=== PATIENT | female | born 1975 | race Caucasian/White ===

== ENCOUNTER 2016-08-18 09:26 | Emergency (ER) | payer OTHER ==
[2016-08-18 10:06] VITALS: BP 149/86
--- NOTE | 2016-08-18 10:50 | UC ---
Skin Complaint HPI - HPI Summary HPI Summary: The patient comes in today for: 1. Sunburn: Onset: 2 days ago. Palliative/provocative: Touch makes Quality: REd, burning, tender. Region: FAce, hands, feet, upper chest Severity: 5/10 Time: Constant. Associated symptoms: Event: She was out in the sun this past Thursday (2 days ago) and using sunblock #50. She was in the sun for 6 hours. She was putting on sunblock all that time. She does get burned very easily. Previous treatment: Aloe. Nocturnal: None. She is on multiple medications which are associated with photosensitivity: Lasix, Meloxicam, Ramipril, Cipro, Mirtazipine. * - History of Current Complaint Chief Complaint: UCSkin Time Seen by Provider: 08/18/16 10:41 Stated Complaint: FACIAL SKIN COMPLAINT Hx Obtained From: Patient Hx Last Menstrual Period: 07/08/16 ?: No - Allergy/Home Medications Allergies/Adverse Reactions: Allergies Allergy/AdvReac Type Severity Reaction Status Date / Time Cephalexin [From Keflex] Allergy Palpitation Verified 05/09/14 12:21 s Clarithromycin Allergy Palpitation Verified 05/09/14 12:21 s Medroxyprogesterone Allergy Palpitation Verified 08/18/16 10:07 [From Provera] s Morphine AdvReac Numbness Verified 08/18/16 10:07 Home Medications: Home Medications Ciprofloxacin TAB* [Cipro 500 MG TAB*] 500 mg PO BID 08/18/16 [History Confirmed 08/18/16] predniSONE TAB* [Deltasone TAB*] 1 mg PO DAILY 08/18/16 [History Confirmed 08/18] Review of Systems Constitutional: Negative Skin: Rash Eyes: Negative ENT: Negative Respiratory: Negative Cardiovascular: Negative Gastrointestinal: Negative Genitourinary: Negative All Other Systems Reviewed And Are Negative: Yes PMH/Surg Hx/FS Hx/Imm Hx Previously Healthy: No - Allergies, Rheumatoid arthritis. Endocrine History Of: Denies: Diabetes, Thyroid Disease, Hyperthyroidism, Hypothyroidism, Dyslipidemia Cardiovascular History Of: Reports: Hypertension Denies: Cardiac Disorders, Pacemaker/ICD, Myocardial Infarction, Congestive Heart Failure, Atrial Fibrillation, Deep Vein Thrombosis, Bleeding Disorders Respiratory History Of: Reports: Asthma Denies: COPD, Bronchitis, Pneumonia, Pulmonary Embolism GI/ History Of: Reports: Gastroesophageal Reflux Denies: Ulcer, Gastrointestinal Bleed, Gall Bladder Disease, Kidney Stones, Diverticulitis, Renal Disease, Urosepsis Neurological History Of: Denies: TIA, CVA, Dementia, Seizures, Migraine Psychological History Of: Reports: Depression Denies: Anxiety, Bipolar Disorder, Schizophrenia, Post Traumatic Stress Disorder Cancer History Of: Denies: Lung Cancer, Colorectal Cancer, Breast Cancer, Prostate Cancer, Cervical Cancer Other History Of: Negative For: HIV, Hepatitis B, Hepatitis C, Anticoagulant Therapy - Surgical History Surgical History: Yes Surgery Procedure, Year, and Place: C-SECT, gallbladder, vocal chord, DNC 06/27 - Family History Known Family History: Positive: Cardiac Disease, Hypertension - Social History Occupation: Employed Full-time Alcohol Use: None Substance Use Type: None Smoking Status (MU): Never Smoked Tobacco Physical Exam Triage Information Reviewed: Yes Appearance: Well-Appearing, No Pain Distress, Well-Nourished Vital Signs: Initial Vital Signs Temp 99.1 F 08/18/16 09:57 Pulse 97 08/18/16 09:57 Resp 16 08/18/16 09:57 BP 149/86 08/18/16 09:57 Pulse Ox 99 08/18/16 09:57 Vital Signs Reviewed: Yes Eyes: Positive: Conjunctiva Clear. Negative: Discharge ENT: Positive: Hearing grossly normal. Negative: Pharyngeal erythema, Nasal congestion, Nasal drainage, TM bulging, TM dull, TM red, Tonsillar swelling, Tonsillar exudate Dental: Negative: Gross Decay/Caries @, Dental Fracture @ Neck: Positive: Supple, Nontender, No Lymphadenopathy. Negative: Nuchal Rigidity Respiratory: Positive: Chest non-tender, Lungs clear, No respiratory distress, No accessory muscle use. Negative: Rhonchi, Wheezing Cardiovascular: Positive: RRR, No Murmur Abdomen Description: Positive: Nontender, No Organomegaly, Soft. Negative: Distended, Guarding Musculoskeletal: Positive: Strength Intact, ROM Intact Neurological: Positive: Alert, Muscle Tone Normal Psychological: Positive: Age Appropriate Behavior, Consolable Skin: Positive: rashes - She has a red rash with some fine, small blisters beginning to form on the chest and the forehead. The pattern is consistent with a more severe sunburn from exposure of sun positioned shining towards her face and on her left. In signs of infection. Course/Dx - Course Course Of Treatment: Patient was told of her treatment options. She wants to try a steroid ointment. - Differential Diagnoses - Skin Complaint Differential Diagnoses: Cellulitis, Eczema - Diagnoses Provider Diagnoses: Sunburn. High blood pressure Discharge - Discharge Plan Condition: Stable Disposition: HOME Patient Education Materials: Sunburn (ED), Hypertension (ED) Referrals: Philip Swanson MD [Primary Care Provider] - 1 Week (Please see your primary care provider or us in about a week to see how well you are doing. If you get worse, please be seen sooner. Your blood pressure may be re-evaluated at that time.)
== END 2016-08-18 11:18 | disposition home or self-care (01) ==
LOC: UCCORT 09:26
DX: L55.9 Sunburn, unspecified (principal); R03.0 Elevated blood-pressure reading, without diagnosis of hypertension; I10 Essential (primary) hypertension; J45.909 Unspecified asthma, uncomplicated; K21.9 Gastro-esophageal reflux disease without esophagitis; F32.9 Major depressive disorder, single episode, unspecified; Z88.1 Allergy status to other antibiotic agents; Z88.5 Allergy status to narcotic agent
CPT/HCPCS: 99212; G0463

== ENCOUNTER 2017-03-22 15:24 | Emergency (ER) | payer OTHER ==
[2017-03-22 16:53] VITALS: BP 140/82
--- NOTE | 2017-03-22 17:01 | UC ---
Elbow Pain - HPI Summary HPI Summary: Slipped on deck and fell hitting right arm. Fell backwards landing on the elbow and wrist. Worsening pain today. Feeling some swelling on the ulnar side of the hand and some numbness on the pinky - History of Current Complaint Chief Complaint: UCUpperExtremity Stated Complaint: RT ELBOW,WRIST Hx Obtained From: Patient Hx Last Menstrual Period: 07/08/16 ?: No Onset/Duration: Days - 1, Traumatic, Worse Since - today Severity Initially: Moderate Severity Currently: Moderate Location Of Pain: Is Discrete @ - Ulnar side of the elbow and hand. Character: Dull, Aching Aggravating Factor(s): Movement, Pulling Alleviating Factor(s): Rest Associated Signs And Symptoms: Positive: Swelling, Numbness/Tingling - over the pinky finger. - Allergies/Home Medications Allergies/Adverse Reactions: Allergies Allergy/AdvReac Type Severity Reaction Status Date / Time Cephalexin [From Keflex] Allergy Palpitation Verified 03/22/17 16:46 s Clarithromycin Allergy Palpitation Verified 03/22/17 16:46 s Medroxyprogesterone Allergy Palpitation Verified 03/22/17 16:46 [From Provera] s Morphine AdvReac Numbness Verified 03/22/17 16:46 Home Medications: Home Medications Budesonide/Formote 160/4.5(NF) [Symbicort 160/4.5 (NF)] 2 puff BID 03/22/17 [ History Confirmed 03/22/17] Omeprazole CAP* [Prilosec CAP* 20 MG] 40 mg DAILY 03/22/17 [History Confirmed ] Tiotropium CAP.INH* [Spiriva CAP.INH*] 1 inh DAILY 03/22/17 [History Confirmed 03/22/17] PMH/Surg Hx/FS Hx/Imm Hx Cardiovascular History: Hypertension Respiratory History: Asthma Other History Of: Negative For: HIV, Hepatitis B, Hepatitis C, Anticoagulant Therapy - Surgical History Surgical History: Yes Surgery Procedure, Year, and Place: C-SECT, gallbladder, vocal chord, DNC . Hysterectomy - Family History Known Family History: Positive: Cardiac Disease, Hypertension - Social History Occupation: Employed Full-time Lives: With Family Alcohol Use: None Substance Use Type: None Smoking Status (MU): Never Smoked Tobacco Have You Smoked in the Last Year: No - Immunization History Most Recent Influenza Vaccination: 2017 Review of Systems Respiratory: Cough Musculoskeletal: Arthralgia - right forearm and hand Is Patient Immunocompromised?: No All Other Systems Reviewed And Are Negative: Yes Physical Exam Triage Information Reviewed: Yes Appearance: Well-Appearing, No Pain Distress, Well-Nourished Vital Signs: Initial Vital Signs Temp 97.6 F 03/22/17 16:49 Pulse 75 03/22/17 16:49 Resp 16 03/22/17 16:49 BP 140/82 03/22/17 16:49 Pulse Ox 99 03/22/17 16:49 Vital Signs Reviewed: Yes Eyes: Positive: Conjunctiva Clear ENT: Positive: Pharynx normal, Nasal congestion, TMs normal Neck exam: Normal Respiratory: Positive: Wheezing - expiratory wheeze with forced expiration Cardiovascular Exam: Normal Musculoskeletal: Positive: 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 Neurological: Positive: Other: - decreased sensation to pinprick on the right ulnar nerve. Psychological Exam: Normal Skin Exam: Normal Diagnostics - Radiology No standard instances Xray Interpretation: No Acute Changes Radiology Interpretation Completed By: ED Physician Elbow Pain Course/Dx - Differential Dx/Diagnosis Differential Diagnosis/HQI/PQRI: Contusion, Fracture (Closed), Sprain, Strain Provider Diagnoses: Contusion right elbow and wrist. Right ulnar nerve contusion. Discharge - Discharge Plan Condition: Stable Disposition: HOME Patient Education Materials: Contusion in Adults (ED) Referrals: Philip Swanson MD [Primary Care Provider] - Milad Duque MD [Medical Doctor] - 2 Days (Recheck on bruised nerve.) Additional Instructions: Ulnar nerve bruise. This should gradually resolve. Consider Montelukast for allergies and asthma to help with the cough
--- NOTE | 2017-03-22 17:36 | RAD ---
INDICATION: Left elbow pain COMPARISON: None TECHNIQUE: AP and lateral views were obtained. FINDINGS: The bony structures, joint spaces, and soft tissues are normal for age. IMPRESSION: NEGATIVE EXAMINATION.
--- NOTE | 2017-03-22 17:37 | RAD ---
INDICATION: Right wrist pain COMPARISON: None TECHNIQUE: AP, lateral, and oblique views were obtained. FINDINGS: There is no acute bony change. There is mild metacarpal osteoarthritis. The carpals articulate normally. The soft tissues are normal. IMPRESSION: NO ACUTE BONY FINDINGS.
== END 2017-03-22 17:56 | disposition home or self-care (01) ==
LOC: UCCORT 15:24
DX: S50.01XA Contusion of right elbow, initial encounter (principal); S60.211A Contusion of right wrist, initial encounter; S54.01XA Injury of ulnar nerve at forearm level, right arm, initial encounter; W01.0XXA Fall on same level from slipping, tripping and stumbling without subsequent striking against object, initial encounter; Y93.9 Activity, unspecified; Y92.008 Other place in unspecified non-institutional (private) residence as the place of occurrence of the external cause; I10 Essential (primary) hypertension; J45.909 Unspecified asthma, uncomplicated; Z90.49 Acquired absence of other specified parts of digestive tract; Z90.710 Acquired absence of both cervix and uterus; Z88.1 Allergy status to other antibiotic agents; Z88.5 Allergy status to narcotic agent; Z88.8 Allergy status to other drugs, medicaments and biological substances
CPT/HCPCS: 99211; G0463

== ENCOUNTER 2017-10-25 16:40 | Emergency (ER) | payer OTHER ==
[2017-10-25 16:57] VITALS: BP 143/88
--- NOTE | 2017-10-25 17:23 | UC ---
Lower Extremity/Ankle HPI - HPI Summary HPI Summary: Pt c/o right foot pain. lateral aspect after tripping in pothole 3 days ago. - History of Current Complaint Chief Complaint: UCTrauma Stated Complaint: R FOOT PAIN FROM FALL Time Seen by Provider: 10/25/17 16:57 Hx Obtained From: Patient Hx Last Menstrual Period: 07/08/16 ?: No Onset/Duration: Sudden Onset, Lasting Days, Still Present Severity Initially: Moderate Severity Currently: Moderate Pain Intensity: 6 Aggravating Factor(s): Standing, Ambulation Alleviating Factor(s): Rest, Elevation Able to Bear Weight: Yes - Risk Factors Gout Risk Factors: Obesity Septic Arthritis Risk Factor: Negative - Allergies/Home Medications Allergies/Adverse Reactions: Allergies Allergy/AdvReac Type Severity Reaction Status Date / Time cephalexin [From Keflex] Allergy Intermediate Palpitation Verified 10/25/17 16: 59 s clarithromycin [From Biaxin] Allergy Intermediate Palpitation Verified 10/25/17 16:59 s morphine Allergy Intermediate Palpitation Verified 10/25/17 16:59 s PMH/Surg Hx/FS Hx/Imm Hx Previously Healthy: Yes Other History Of: Negative For: HIV, Hepatitis B, Hepatitis C, Anticoagulant Therapy - Surgical History Surgical History: Yes Surgery Procedure, Year, and Place: C-SECT, gallbladder, vocal chord, DNC . Hysterectomy - Family History Known Family History: Positive: Cardiac Disease, Hypertension - Social History Occupation: Employed Full-time Lives: With Family Alcohol Use: None Substance Use Type: None Smoking Status (MU): Never Smoked Tobacco Have You Smoked in the Last Year: No - Immunization History Most Recent Influenza Vaccination: 2017 Review of Systems Constitutional: Negative Skin: Bruising - right foot Eyes: Negative ENT: Negative Respiratory: Negative Cardiovascular: Negative Gastrointestinal: Negative Genitourinary: Negative Motor: Decreased ROM - right foot Neurovascular: Negative Musculoskeletal: Arthralgia, Myalgia Neurological: Negative Psychological: Negative Is Patient Immunocompromised?: No All Other Systems Reviewed And Are Negative: Yes Physical Exam Triage Information Reviewed: Yes Appearance: Well-Appearing Vital Signs: Initial Vital Signs Temp 99.2 F 10/25/17 16:52 Pulse 93 10/25/17 16:52 Resp 18 10/25/17 16:52 BP 143/88 10/25/17 16:52 Pulse Ox 98 10/25/17 16:52 Vital Signs Reviewed: Yes Eye Exam: Normal ENT Exam: Normal Dental Exam: Normal Neck exam: Normal Respiratory: Positive: No respiratory distress Musculoskeletal Exam: Other Musculoskeletal: Positive: ROM Limited @ - right foot, Edema @ - right foot lateral aspect, Neurological Exam: Normal Psychological Exam: Normal Skin Exam: Other - bruising right foot, lateral aspect Diagnostics - Radiology No standard instances Radiology Interpretation Completed By: Radiologist - IMPRESSION: NONDISPLACED FRACTURE OF THE BASE OF THE FIFTH METATARSAL. Lower Extremity Course/Dx - Differential Dx/Diagnosis Differential Diagnosis/HQI/PQRI: Contusion, Sprain, Strain Provider Diagnoses: right foot fracture Discharge - Sign-Out/Discharge Documenting (check all that apply): Discharge/Admit/Transfer - Discharge Plan Condition: Stable Disposition: HOME Patient Education Materials: Foot Fracture in Adults (ED) Forms: *Work Release Referrals: Milad Duque MD [Medical Doctor] - As Soon As Possible Raven Galvez MD [Primary Care Provider] - If Needed - Billing Disposition and Condition Condition: STABLE Disposition: Home
--- NOTE | 2017-10-25 17:33 | RAD ---
HISTORY: fall/trip in pothole 2 days ago COMPARISONS: None VIEWS: 3, Frontal, lateral, and oblique views of the right foot FINDINGS: BONE DENSITY: Normal. BONES: There is a nondisplaced fracture of the base of the fifth metatarsal with articular extension. JOINTS: There is no arthropathy. ALIGNMENT: There is no dislocation. SOFT TISSUES: Unremarkable. OTHER FINDINGS: None. IMPRESSION: NONDISPLACED FRACTURE OF THE BASE OF THE FIFTH METATARSAL.
== END 2017-10-25 18:08 | disposition home or self-care (01) ==
LOC: UCCORT 16:40
DX: S92.354A Nondisplaced fracture of fifth metatarsal bone, right foot, initial encounter for closed fracture (principal); W17.2XXA Fall into hole, initial encounter; Y93.9 Activity, unspecified; Y92.9 Unspecified place or not applicable; Z88.1 Allergy status to other antibiotic agents; Z88.5 Allergy status to narcotic agent
CPT/HCPCS: 99213; G0463

== ENCOUNTER 2017-12-23 15:33 | Emergency (ER) | payer OTHER ==
--- OUTSIDE RECORDS SUMMARY | 2017-12-23 15:41 | XMS REPORT ---
:1975 External Reference #:[id number] Author Organization [facility] Address [address] [place] [address] Phone [phone] Care Team Providers Name Role Phone Raven Galvez MD Care Team Information Erp Project Manager Unavailable Raven Galvez MD Primary Care Physician Unavailable Payers Type Date Identification Numbers Payment Provider Subscriber Commercial Policy Number: [id number] [employer] Jaylin Mcgraw PayID: [id number] [address] [place] [address] Commercial Policy Number: [id number] [employer] Jaylin Mcgraw PayID: [id number] [address] [facility] [place] [address] Commercial Expires: 2017 Policy Number: [place] [employer] Jaylin Mcgraw [id number] PayID: [id number] [address] [place] [address] Problems Date Description Provider Status Onset: 04/11/2013 Gallbladder calculus with acute Fly Trujillo M.D. 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 Cigarette Use Never Smoked Cigarettes ETOH Use Denies alcohol use Smoking Patient has never smoked Recreational Drug Use Denies Drug Use Daily Caffeine Consumes on average 1 cup of regular coffee per day Daily Caffeine Current Caffeine User Allergies, Adverse Reactions, Alerts Date Description Reaction Status Severity Comments 04/11/2013 Keflex active 02/09/2017 Clarithromycin active 02/09/2017 Biaxin active 02/09/2017 Morphine active 02/09/2017 Provera active 02/09/2017 Steri-Strips active Medications Medication Date Status Form Strength Qnty SIG Indications Ordering Provider Ondansetron / Active Tablets 4mg 5tabs one po 30 Unknown Odt 0000 Dispers min before 1pm & 10 pm doses, and one q4h prn nausea Zyrtec Allergy / Active Tablets 10mg 30tab 1 by mouth Unknown 0000 s every day Ventolin HFA / Active Aerosol 108(90Bas prn Unknown 0000 e) mcg/Act Escitalopram / Active Tablets 20mg 30tab 1 by mouth Unknown Oxalate 0000 s every day Mirtazapine / Active Tablets 30mg 90tab 1 by mouth Unknown 0000 s every day Singulair / Active Tablets 10mg 90tab 1 by mouth Unknown 0000 s every day Montelukast / Active Tablets 10mg 1 by mouth Unknown Sodium 0000 every day Omeprazole / Active Capsules DR 40mg 1 by mouth Unknown 0000 every day Symbicort 00/00/ Active Aerosol 160-4.5mc 2 puff Unknown 0000 g/Act twice a day Spiriva / Active Aerosol 1.25mcg/A [address] inhalation once a day. pleas load and teach inhaler. Amlodipine / Active Tablets 2.5mg 90tab 1 by mouth Unknown Besylate 0000 s every day Fluticasone / Active Suspension 50mcg/Act 1 spray to Unknown Propionate 0000 each nare every day Elimite / Hx Cream 5% Unknown 0000 Montelukast // Hx Tablets 10mg Unknown Sodium 0000 Ramipril / Hx Capsules 10mg 90cap 1 po qd Unknown 0000 - s 2017 Vital Signs Date Vital Result Comment 12/10/2017 BP Systolic Sitting Left Arm 149 mmHg Pt will monitor and contact PCP if needed BP Diastolic Sitting Left Arm 100 mmHg Pt will monitor and contact PCP if needed Body Temperature 98.0 F Heart Rate 80 /min Respiratory Rate 17 /min Height 59 inches 4'11" Weight 195.00 lb BMI (Body Mass Index) 39.4 kg/m2 BSA (Body Surface Area) 1.82 m2 [place] body weight in kilograms 45 O2 % BldC Oximetry 97 % 2017 BP Systolic Sitting Left Arm 143 mmHg Pt say it been high BP Diastolic Sitting Left Arm 98 mmHg Pt say it been high Body Temperature 97.9 F Heart Rate 86 /min Respiratory Rate 17 /min Height 59 inches 4'11" Weight 192.00 lb BMI (Body Mass Index) 38.8 kg/m2 BSA (Body Surface Area) 1.81 m2 [place] body weight in kilograms 45 O2 % BldC Oximetry 100 % 11/10/2017 BP Systolic Sitting Left Arm 146 mmHg BP Diastolic Sitting Left Arm 92 mmHg Body Temperature 98.1 F Heart Rate 101 /min Respiratory Rate 19 /min Height 59 inches 4'11" Weight 199.00 lb BMI (Body Mass Index) 40.2 kg/m2 BSA (Body Surface Area) 1.84 m2 [place] body weight in kilograms 45 O2 % BldC Oximetry 96 % 10/26/2017 BP Systolic Sitting Left Arm 125 mmHg BP Diastolic Sitting Left Arm 87 mmHg Body Temperature 98.7 F Heart Rate 102 /min Respiratory Rate 17 /min Height 59 inches 4'11" [place] body weight in kilograms 45 O2 % BldC Oximetry 97 % 04/11/2013 BP Systolic Sitting Left Arm 116 mmHg BP Diastolic Sitting Left Arm 85 mmHg Heart Rate 97 /min Respiratory Rate 18 /min Height 59 inches 4'11" Weight 144.00 lb BMI (Body Mass Index) 29.1 kg/m2 BSA (Body Surface Area) 1.60 m2 Results Test Date Test Result H/L Range Note Xray 12/10/2017 RMP, Foot, RT, Ap, lat & oblique (3 <pending> view) CBC 04/22/2013 White Blood Count 8.4 K/uL 3.1-10.7 Red Blood Count 4.55 M/uL 3.90-5.40 Hemoglobin 13.3 gm/dL 11.6-15.8 Hematocrit 40.4 % 36.0-46.1 Mean Cell Volume 88.8 fl 80.9-99.0 Mean Corpuscular HGB 29.2 pg 25.9-32.7 Mean Corpuscular HGB Conc 32.9 g/dL 30.8-34.3 Platelet Count 288 K/uL 155-360 Red Cell Distri Width %CV 12.8 % 11.7-14.4 Mean Platelet Volume 10.4 fL 8.9-12.4 Protime 04/22/2013 Protime 13.2 seconds 12.0-14.4 Inr 1.0 0.9-1.1 1 Laboratory test finding 04/22/2013 Gallbladder See Note 2 Urine Screen 04/19/2013 Urine Color YELLOW Yellow Urine Clarity CLOUDY Clear Urine Glucose - Dipstick NEGATIVE mg/dL Negative Urine Bilirubin - Dipstick NEGATIVE Negative Urine Ketone NEGATIVE mg/dL Negative Urine Specific [place] 1.025 1.010-1.030 Urine Blood NEGATIVE Negative Urine PH 6.0 Low 6.5-7.5 Urine Protein - Dipstick NEGATIVE mg/dL Negative Urine Urobilinogen - Dipstick 0.2 E.U./dL 0.2-1.0 Urine Nitrite - Dipstick NEGATIVE Negative Urine Leuk Esterase NEGATIVE Negative Liver Function Tests 04/19/2013 Total Protein 6.7 g/dL 6.3-8.0 Albumin 4.0 g/dL 3.5-5.0 Globulin 2.7 g/dL 1.9-4.3 Alb/Glob 1.5 ratio Bilirubin,Total 0.4 mg/dL 0.2-1.2 Bilirubin,Direct < 0.1 mg/dL Low 0.1-0.4 Bilirubin,Indirect 0.3 mg/dL 0.0-0.9 Sgot/Ast 32 U/L 16-40 SGPT/Alt 84 U/L High 30-65 Alkaline Phosphatase 71 U/L 50-136 Basic Metabolic Panel 04/19/2013 Glucose 95 mg/dL 76-115 BUN 10 mg/dL 5-23 Creatinine 0.8 mg/dL 0.5-1.4 Glom Filtration Rate, Estimate >60 mL/min >60 If >60 mL/min >60 3 BUN/Creat 12.5 ratio Sodium 139 mmol/L 136-145 Potassium 3.9 mmol/L 3.5-5.1 Chloride 107 mmol/L 98-107 Carbon Dioxide 27 mEq/L 18-29 Anion Gap 9 mEq/L 8-16 Calcium 9.4 mg/dL 8.5-10.1 CBC 04/19/2013 White Blood Count 5.8 K/uL 3.1-10.7 Red Blood Count 4.85 M/uL 3.90-5.40 Hemoglobin 14.1 gm/dL 11.6-15.8 Hematocrit 43.1 % 36.0-46.1 Mean Cell Volume 88.9 fl 80.9-99.0 Mean Corpuscular HGB 29.1 pg 25.9-32.7 Mean Corpuscular HGB Conc 32.7 g/dL 30.8-34.3 Platelet Count 281 K/uL 155-360 Red Cell Distri Width %CV 12.8 % 11.7-14.4 Mean Platelet Volume 11.0 fL 8.9-12.4 1 THERAPEUTIC INR RANGE: 2.0 - 3.0 DVT, Pulmonary embolus, prophylaxis against venous thrombosis or systemic embolization in high risk patients. 2.5 - 3.5 Mechanical heart valves 2 OPERATION/PROCEDURE Lap. joselin. DIAGNOSIS: "GALLBLADDER": CHRONIC CHOLECYSTITIS, CHOLESTEROLOSIS AND CHOLELITHIASIS. NO EVIDENCE OF ACUTE INFLAMMATION, DYSPLASIA NOR NEOPLASIA APPRECIATED. MIKAELA/lisha GROSS The specimen is received in a single container additionally labeled "GALLBLADDER". This contains a grossly recognizable unopened gallbladder. This has a green shiny smooth surface and overall measures 6.6 x 3.0 x 2.6 cm. in overall dimensions. There is no visible wall defect. The wall has a uniform thickness of 0.1 cm. The mucosal surface is green, velvety smooth and unremarkable. No trabeculations noted. [place] reticular discoloration of cholesterolosis is noted. One stone is noted with a diameter up to 0.6 cm., it does not obstruct the neck. Bond Underwriter sections are submitted within a single cassette. /celiaf MICROSCOPIC Sections show gallbladder mucosa lined by columnar epithelium with focal synechia, and Rokitansky-Aschoff sinus formation. The submucosa has a mild infiltrate of lymphocytes and plasma cells. Foamy histiocytes are noted within the tips of papillae. The muscular wall is slightly fibrotic and hypertrophied. PRE OPERATIVE DIAGNOSIS Cholecystitis REVIEW CODE CODE: I RASHAAD Felix MD 04/26/13 1229 3 Note: Persistent reduction for 3 months or more in an eGFR <60 mL/min/1.73 m2 defines CKD. Patients with eGFR values >/=60 mL/min/1.73 m2 may also have CKD if evidence of persistent proteinuria is present. The original MDRD equation for estimated GFR is not valid for patients less than 18 years of age. Additional information may be found at www.kdoqi.org. Procedures Date CPT Code Description Status 12/10/2017 56981 Radiology, Foot, Complete-3 Views Completed 12/10/2017 89657 Radiology, Foot, Complete-3 Views Completed 2017 17276 Radiology, Foot, Complete-3 Views Completed 11/10/2017 77121 Radiology, Foot, Complete-3 Views Completed 10/26/2017 74120 FX Metatarsal-Closed W/O Completed 02/09/2017 74316 Eye Exam New Patient Comprehensive Completed 10/31/2013 96193 Echocardiogram Complete Completed 04/22/2013 56770 Laparoscopy; cholecystectomy Completed 04/22/2013 19675 Anesthesia, Upper Abdomen Surgery Not Otherwise Spec Completed Encounters Type Date Location Provider CPT E/M Dx Office Visit 10/26/2017 2:15p Orthopaedic Office JAX Narayan 67558 [id number] Office Visit 04/11/2013 2:00p Surgical Office Fly Trujillo M.D. [id number] 574.10 564.1 300.02 Plan of Care 12/10/2017 - MOISES [id number] Nondisp fx of 5th metatarsal bone, r ft, 7thDComments:Overall she is doing very well. She may return to regular shoe wear. She may return to work full duty. Activities as tolerated. Follow up here as needed.Follow up:prn
[2017-12-23 15:48] VITALS: BP 136/97
--- NOTE | 2017-12-23 16:16 | UC ---
Lower Extremity/Ankle HPI - HPI Summary HPI Summary: The patient is a 42-year-old female who twisted her right foot at work 3 days ago. She is able to walk but does so with a limp. Back in October she fractured the base of her right fifth metatarsal. Currently her pain is located at the base of her first metatarsal. This injury occurred at work. She injured her foot walking on uneven ground. - History of Current Complaint Chief Complaint: UCLowerExtremity Stated Complaint: WC - RIGHT FOOT INJURY Time Seen by Provider: 12/23/17 15:58 Hx Obtained From: Patient Hx Last Menstrual Period: 07/08/16 Onset/Duration: Sudden Onset Severity Initially: Moderate Severity Currently: Mild Pain Intensity: 1 Pain Scale Used: 0-10 Numeric Aggravating Factor(s): Standing Alleviating Factor(s): Rest Able to Bear Weight: Yes Related History: Occupational Injury Feet (Multiple View): 1 - tender here - Allergies/Home Medications Allergies/Adverse Reactions: Allergies Allergy/AdvReac Type Severity Reaction Status Date / Time cephalexin [From Keflex] Allergy Intermediate Palpitation Verified 12/23/17 15: 45 s clarithromycin [From Biaxin] Allergy Intermediate Palpitation Verified 12/23/17 15:45 s morphine Allergy Intermediate Palpitation Verified 12/23/17 15:45 s Steri Strips Allergy Rash Uncoded 12/23/17 15:45 Home Medications: Home Medications Acetaminophen [Tylenol Extra Strength] 1,000 mg PO ONCE 12/23/17 [History Confirmed 12/23/17] PMH/Surg Hx/FS Hx/Imm Hx Previously Healthy: Yes Other History Of: Negative For: HIV, Hepatitis B, Hepatitis C, Anticoagulant Therapy - Surgical History Surgical History: Yes Surgery Procedure, Year, and Place: C-SECT, gallbladder, vocal chord, [facility] . Hysterectomy, liver biopsy - Family History Known Family History: Positive: Cardiac Disease, Hypertension - Social History Alcohol Use: None Substance Use Type: None Smoking Status (MU): Never Smoked Tobacco Have You Smoked in the Last Year: No - Immunization History Most Recent Influenza Vaccination: 2016 Review of Systems Constitutional: Negative Skin: Negative Eyes: Negative ENT: Negative Respiratory: Negative Cardiovascular: Negative Gastrointestinal: Negative Genitourinary: Negative Motor: Negative Neurovascular: Negative Musculoskeletal: Arthralgia Neurological: Negative Psychological: Negative Is Patient Immunocompromised?: No All Other Systems Reviewed And Are Negative: Yes Physical Exam Triage Information Reviewed: Yes Appearance: Well-Appearing, No Pain Distress, Well-Nourished Vital Signs: Initial Vital Signs Temp 99.4 F 12/23/17 15:41 Pulse 83 12/23/17 15:41 Resp 16 12/23/17 15:41 BP 136/97 12/23/17 15:41 Pulse Ox 97 12/23/17 15:41 Vital Signs Reviewed: Yes Eye Exam: Normal ENT: Negative: Hearing grossly normal, Nasal congestion, Nasal drainage, Trismus , Muffled voice, Hoarse voice Neck: Positive: Supple, Nontender Respiratory: Positive: Lungs clear, Normal breath sounds, No respiratory distress Cardiovascular: Positive: RRR, No Murmur Musculoskeletal Exam: Normal Musculoskeletal: Positive: ROM Intact, No Edema, Other: - see image Neurological: Positive: Alert Psychological Exam: Normal Skin Exam: Normal Diagnostics - Radiology No standard instances Xray Interpretation: No Acute Changes Radiology Interpretation Completed By: Radiologist Lower Extremity Course/Dx - Course Course Of Treatment: declines post op shoe - Differential Dx/Diagnosis Provider Diagnoses: right foot sprain Discharge - Sign-Out/Discharge Documenting (check all that apply): Patient Departure - Discharge Plan Condition: Critical Disposition: HOME Patient Education Materials: Foot Sprain (ED) Referrals: Raven Galvez MD [Primary Care Provider] - Additional Instructions: ice twice daily advil or ice if needed for pain recheck in 1-2 weeks if not better - Billing Disposition and Condition Condition: CRITICAL Disposition: Home
--- NOTE | 2017-12-23 16:25 | RAD ---
INDICATION: Foot injury COMPARISON: None TECHNIQUE: AP, lateral, and oblique views were obtained. FINDINGS: There is no acute fracture. There is an old, healed, fifth metatarsal fracture. There is mild osteoarthritic change but the midfoot. The soft tissues are intact. IMPRESSION: NO ACUTE BONY FINDINGS.
== END 2017-12-23 16:41 | disposition home or self-care (01) ==
LOC: UCCORT 15:33
DX: S93.601A Unspecified sprain of right foot, initial encounter (principal); X50.1XXA Overexertion from prolonged static or awkward postures, initial encounter; Y93.01 Activity, walking, marching and hiking; Y92.9 Unspecified place or not applicable; Y99.0 Civilian activity done for income or pay; Z88.1 Allergy status to other antibiotic agents; Z88.5 Allergy status to narcotic agent
CPT/HCPCS: 99211; G0463

== ENCOUNTER 2018-02-21 12:21 | Emergency (ER) | payer OTHER ==
[2018-02-21 13:43] VITALS: BP 138/84
[2018-02-21] MEDS ORDERED: Ketorolac INJ* 30 MG/ML 1 ML VIAL IM ONE (13:56)
--- NOTE | 2018-02-21 14:14 | UC ---
Abdominal Pain Female HPI - HPI Summary HPI Summary: 42-year-old female presents with left lower back and flank pain that radiates into the groin. This has been going on and off for a few weeks but over the last 3 days has worsened significantly. Patient could not get comfortable last night and could not sleep. She denies any fevers or chills. She denies any trauma or injury that she can think of. 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 She denies any urinary incontinence or leg weakness. The pain does not radiate into the legs. She denies any urinary concerns. She has no concerns with diarrhea or constipation. She states the pain is 9 out of 10 and Tylenol and Motrin have not helped. She denies having any previous history of kidney stones. - History of Current Complaint Chief Complaint: UCBackPain Stated Complaint: LOWER BACK PAIN Time Seen by Provider: 02/21/18 13:47 Hx Obtained From: Patient Hx Last Menstrual Period: 07/08/16 Onset/Duration: Gradual Onset Timing: Constant Severity Initially: Mild Severity Currently: Severe Pain Intensity: 9 Radiates to: Back, Flank Character: Aching, Sharp Alleviating Factor(s): Nothing Allergies/Adverse Reactions: Allergies Allergy/AdvReac Type Severity Reaction Status Date / Time cephalexin [From Keflex] Allergy Intermediate Palpitation Verified 02/21/18 13: 43 s clarithromycin [From Biaxin] Allergy Intermediate Palpitation Verified 02/21/18 13:43 s lisinopril Allergy Intermediate GI upset, Verified 02/21/18 13:43 sweating, palpitations morphine Allergy Intermediate Palpitation Verified 02/21/18 13:43 s Steri Strips Allergy Rash Uncoded 02/21/18 13:43 PMH/Surg Hx/FS Hx/Imm Hx Previously Healthy: Yes Endocrine History: Dyslipidemia Cardiovascular History: Hypertension GI/ History: Gastroesophageal Reflux Psychological History: Anxiety, Depression Other History Of: Negative For: HIV, Hepatitis B, Hepatitis C, Anticoagulant Therapy - Surgical History Surgical History: Yes Surgery Procedure, Year, and Place: C-SECT, gallbladder, vocal chord, DNC . Hysterectomy, liver biopsy - Family History Known Family History: Positive: Cardiac Disease, Hypertension - Social History Occupation: Employed Full-time Alcohol Use: None Substance Use Type: None Smoking Status (MU): Never Smoked Tobacco Have You Smoked in the Last Year: No - Immunization History Most Recent Influenza Vaccination: 2017 Review of Systems Musculoskeletal: Arthralgia Is Patient Immunocompromised?: No All Other Systems Reviewed And Are Negative: Yes Physical Exam - Summary Physical Exam Summary: Patient cannot sit still and is constantly moving and she cannot find a comfortable position Triage Information Reviewed: Yes Appearance: Well-Appearing, Well-Nourished, Pain Distress - moderate Vital Signs: Initial Vital Signs Temp 98.5 F 02/21/18 13:38 Pulse 82 02/21/18 13:38 Resp 16 02/21/18 13:38 BP 138/84 02/21/18 13:38 Pulse Ox 100 02/21/18 13:38 Vital Signs Reviewed: Yes Eye Exam: Normal ENT Exam: Normal Neck exam: Normal Neck: Positive: 1 Respiratory Exam: Normal Cardiovascular Exam: Normal Abdominal Exam: Normal Musculoskeletal Exam: Normal Musculoskeletal: Positive: Strength Intact, ROM Intact, No Edema, Other: - Left lumbar paraspinal tenderness L1 and 2 as well as some mild flank left-sided discomfort to palpation. No spinous process tenderness no step-off. Strength 5 out of 5 lower extremities and sensation intact. DTRs normal. Neurological Exam: Normal Psychological Exam: Normal Skin Exam: Normal Abd Pain Female Course/Dx - Course Course Of Treatment: Patient with left lower back and flank discomfort that radiates into the groin. She cannot sit comfortably and is very fidgety. Concern for renal stone. Check a CT scan renal protocol at this time. Urinalysis is negative at this time. In the office patient did receive dose of Toradol for her pain. CT scan is not possible as the machine is broken we will advise patient to go to the emergency room at this time. She is agreeable to plan of note her pain did drop from a 9 down to a 7 with toradol. spoke with jose at ED in [place] and willing to accept pt - Differential Dx/Diagnosis Differential Diagnosis: Renal Colic Provider Diagnoses: Left flank / back pain Discharge - Sign-Out/Discharge Documenting (check all that apply): Patient Departure All imaging exams completed and their final reports reviewed: No Studies - Discharge Plan Condition: Good Disposition: HOME Patient Education Materials: Flank Pain (ED) Referrals: Raven Galvez MD [Primary Care Provider] - 3 Days Additional Instructions: As we discussed your advised to go directly to the emergency room for further evaluation as we are not equipped to properly evaluate your medical condition at this time. Feel better. - Billing Disposition and Condition Condition: GOOD Disposition: Home
== END 2018-02-21 14:24 | disposition home or self-care (01) ==
LOC: UCCORT 12:21
DX: Z88.1 Allergy status to other antibiotic agents (principal); Z88.5 Allergy status to narcotic agent; Z88.8 Allergy status to other drugs, medicaments and biological substances; I10 Essential (primary) hypertension; R10.9 Unspecified abdominal pain; M54.5 Low back pain
CPT/HCPCS: 81003; 96372; 99211; G0463; J1885

== ENCOUNTER 2018-03-28 12:29 | Emergency (ER) | payer OTHER ==
[2018-03-28 15:22] VITALS: BP 142/89
--- NOTE | 2018-03-28 15:56 | UC ---
Upper Extremity HPI - HPI Summary HPI Summary: Patient slipped on ice at work, anded on her forearm. pain, swelling and deformity of right wrist is noted. color and sensation in hand normal - History of Current Complaint Chief Complaint: UCUpperExtremity Stated Complaint: WC-RIGHT WRIST INJURY Time Seen by Provider: 03/28/18 15:21 Hx Obtained From: Patient Hx Last Menstrual Period: 07/08/16 Onset/Duration: Sudden Onset, Lasting Hours Severity Initially: Moderate Severity Currently: Moderate Pain Intensity: 7 Character: Throbbing, Spasmodic Aggravating Factor(s): Movement, Lifting, Flexion, Extension Associated Signs And Symptoms: Positive: Negative, Swelling - Allergies/Home Medications Allergies/Adverse Reactions: Allergies Allergy/AdvReac Type Severity Reaction Status Date / Time cephalexin [From Keflex] Allergy Intermediate Palpitation Verified 03/28/18 15: 22 s clarithromycin [From Biaxin] Allergy Intermediate Palpitation Verified 03/28/18 15:22 s lisinopril Allergy Intermediate GI upset, Verified 03/28/18 15:22 sweating, palpitations morphine Allergy Intermediate Palpitation Verified 03/28/18 15:22 s Steri Strips Allergy Rash Uncoded 03/28/18 15:22 PMH/Surg Hx/FS Hx/Imm Hx Previously Healthy: Yes Other History Of: Negative For: HIV, Hepatitis B, Hepatitis C, Anticoagulant Therapy - Surgical History Surgical History: Yes Surgery Procedure, Year, and Place: C-SECT, gallbladder, vocal chord, DNC . Hysterectomy, liver biopsy - Family History Known Family History: Positive: Cardiac Disease, Hypertension - Social History Alcohol Use: None Substance Use Type: None Smoking Status (MU): Never Smoked Tobacco Have You Smoked in the Last Year: No - Immunization History Most Recent Influenza Vaccination: 2016 Review of Systems All Other Systems Reviewed And Are Negative: Yes Constitutional: Positive: Negative Skin: Positive: Negative Eyes: Positive: Negative ENT: Positive: Negative Respiratory: Positive: Negative Cardiovascular: Positive: Negative Gastrointestinal: Positive: Negative Genitourinary: Positive: Negative Motor: Positive: Negative Neurovascular: Positive: Negative Musculoskeletal: Positive: Arthralgia, Decreased ROM, Edema, Myalgia Neurological: Positive: Negative Psychological: Positive: Negative Is Patient Immunocompromised?: No Physical Exam Triage Information Reviewed: Yes Appearance: Well-Appearing, Well-Nourished, Pain Distress Vital Signs: Initial Vital Signs Temp 98.5 F 03/28/18 15:17 Pulse 95 03/28/18 15:17 Resp 17 03/28/18 15:17 BP 142/89 03/28/18 15:17 Pulse Ox 98 03/28/18 15:17 Vital Signs Reviewed: Yes Eye Exam: Normal ENT Exam: Normal Dental Exam: Normal Neck exam: Normal Respiratory Exam: Normal Cardiovascular Exam: Normal Cardiovascular: Positive: RRR, No Murmur, Pulses Normal Abdominal Exam: Normal Abdomen Description: Positive: Nontender, No Organomegaly, Soft Musculoskeletal: Positive: Strength Limited @ - in right girp, ROM Limited @ - in right wrist and finger movment, supination painful Neurological Exam: Normal Psychological Exam: Normal Skin Exam: Normal Upper Extremity Course/Dx - Course Course Of Treatment: hx obtained, exam performed,meds reviewed, xray obtained. - Differential Dx/Diagnosis Differential Diagnosis/HQI/PQRI: Contusion, Fracture (Closed), Strain, Sprain Provider Diagnoses: fracture of right ulna. communited fracture of distal radius Discharge - Sign-Out/Discharge Documenting (check all that apply): Patient Departure All imaging exams completed and their final reports reviewed: Yes - Discharge Plan Condition: Stable Disposition: HOME Patient Education Materials: Wrist Fracture in Adults (ED) Forms: *Work Release Referrals: Raven Galvez MD [Primary Care Provider] - Milad Duque MD [Medical Doctor] - Additional Instructions: 1. COntinue with ibuprofen for pain management 2. Wear the splint continuously until seen by orthopedist. - Billing Disposition and Condition Condition: STABLE Disposition: Home
== END 2018-03-28 16:47 | disposition home or self-care (01) ==
LOC: UCCORT 12:29
DX: S52.201A Unspecified fracture of shaft of right ulna, initial encounter for closed fracture (principal); S52.501A Unspecified fracture of the lower end of right radius, initial encounter for closed fracture; Z88.1 Allergy status to other antibiotic agents; Z88.8 Allergy status to other drugs, medicaments and biological substances; Z88.5 Allergy status to narcotic agent; Z91.048 Other nonmedicinal substance allergy status; W00.0XXA Fall on same level due to ice and snow, initial encounter; Y92.9 Unspecified place or not applicable; Y99.0 Civilian activity done for income or pay
CPT/HCPCS: 99213; G0463